=== PATIENT | female | born 1975 | race Caucasian/White ===

== ENCOUNTER 2019-05-20 16:18 | Emergency (ER) | payer OTHER ==
--- NOTE | 2019-05-20 17:22 | EDM.PDOC ---
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 She reports that she had unprotected sex with a unknown partner approximately 2 weeks ago. Since that time she has heard from other people that he is an IV drug user, has multiple STDs and possibly HIV/ AIDS. She states she has had an irregular menstrual period and is concerned that she could be . Does have some mild discomfort to the suprapubic area. Patient denies any fever, chills, headache, change in vision, syncope or near syncope. Denies any chest pain, back pain, shortness of breath or cough. Denies any abdominal pain, nausea, vomiting, diarrhea, constipation or dysuria. She denies any vaginal bleeding, discharge or vaginal odor. Has not been previously treated for any STDs or PID infections. Has not noted any blood in urine or stool. Patient has been eating and drinking appropriately. Review of systems: As per history of present illness and below otherwise all systems reviewed and negative. Past medical history: As per history of present illness and as reviewed below otherwise noncontributory. Surgical history: As per history of present illness and as reviewed below otherwise noncontributory. Social history: See social history for further information Family history: As per history of present illness and as reviewed below otherwise noncontributory. Physical exam: General: Well-developed and well-nourished 43-year-old female. Alert and oriented. Nontoxic appearing and in no acute distress. HEENT: Atraumatic, normocephalic, pupils equal and reactive bilaterally, negative for conjunctival pallor or scleral icterus, mucous membranes moist, TMs normal bilaterally, throat clear, neck supple, nontender, trachea midline. No drooling or trismus noted. No meningeal signs. No hot potato voice noted. Lungs: Clear to auscultation, breath sounds equal bilaterally, chest nontender. Heart: S1S2, regular rate and rhythm without overt murmur Abdomen: Soft, nondistended, nontender. Negative for masses or hepatosplenomegaly. Negative for costovertebral tenderness. Pelvis: Stable nontender. Genitourinary: This was done with consent and a resident hall director at the bedside. External genitalia within normal limits, no lesions or sores noted. Does have mild tenderness with speculum examination. Cervical os is closed with no discharge or bleeding. No cervical motion tenderness. Negative bimanual exam. Rectal: Deferred. Skin: Intact, warm, dry. No lesions or rashes noted. Extremities: Atraumatic, moves all extremities per self without difficulty or deficits, negative for cords or calf pain. Neurovascular unremarkable. Neuro: Awake, alert, oriented. Cranial nerves II through XII unremarkable. Cerebellum unremarkable. Motor and sensory unremarkable throughout. Exam nonfocal. Notes: Pelvic exam was completed and samples were obtained and sent to lab. Patient does have multiple requests for a full STD screening and Pap smear. Did inform the patient of the limited resources and testing available through the emergency room. We will test for gonorrhea and Chlamydia along with a wet prep. She is agreeable to get the remainder of the STD screening through the clinic or [facility]. Rocephin and azithromycin given here. We'll give her prescription for Flagyl. Safe sex practices were discussed. Supportive care measures were reviewed and discussed. Voices understanding and is agreeable to plan of care. Denies any further questions or concerns at this time. Diagnostics: CBC, CMP, UA, urine , gonorrhea/chlamydia, wet prep Therapeutics: Rocephin, azithromycin Prescription: Flagyl Impression: Possible STD exposure Bacterial vaginosis Plan: 1. Practice safe sex. Avoid any sexual contact until you have your STD results back. As we discussed, several of the STD screening's are not done through the emergency room (HIV, AIDS, syphillas, herpes...) Please follow up with your primary care provider or the [facility] for further testing. 2. Take the Flagyl as directed. Do not have sex with taking this medication. 3. Return to the ED as needed and as discussed. Definitive disposition and diagnosis as appropriate pending reevaluation and review of above. - Related Data Allergies Allergy/AdvReac Type Severity Reaction Status Date / Time No Known Allergies Allergy Verified 05/20/19 16:29 Home Meds: Home Meds . [No Known Home Meds] 05/20/19 [History] Past Medical History - Past Surgical History Female Surgical History: Reports: Section Musculoskeletal Surgical History: Reports: Ganglion Cyst Social & Family History - Tobacco Use Smoking Status *Q: Current Some Day Smoker Years of Tobacco use: 10 Packs/Tins Daily: 0 - Caffeine Use Caffeine Use: Reports: Coffee, Energy Drinks, Soda - Recreational Drug Use Recreational Drug Use: No ED ROS GENERAL - Review of Systems Review Of Systems: ROS reveals no pertinent complaints other than HPI. ED EXAM, GENERAL - Physical Exam Exam: See Below (See dictation) Course - Vital Signs Last Recorded V/S: Last Vital Signs Temp 97.2 F 05/20/19 16:25 Pulse 71 05/20/19 16:25 Resp 16 05/20/19 16:25 BP 110/68 05/20/19 16:25 Pulse Ox 98 05/20/19 16:25 - Orders/Labs/Meds Orders: Active Orders 24 hr Category Date Time Status CHLAMYDIA AND GONORRHEA BY TMA Stat Lab 05/20/19 17:00 Received Labs: Laboratory Tests 05/20/19 05/20/19 05/20/19 Range/Units 16:33 16:33 17:00 WBC 6.23 (4.0-11.0) K/uL RBC 4.86 (4.30-5.90) M/uL Hgb 13.8 (12.0-16.0) g/dL Hct 42.0 (36.0-46.0) % MCV 86.4 (80.0-98.0) fL MCH 28.4 (27.0-32.0) pg MCHC 32.9 (31.0-37.0) g/dL RDW Std Deviation 50.8 (28.0-62.0) fl RDW Coeff of Katherine 16 H (11.0-15.0) % Plt Count 322 (150-400) K/uL MPV 9.40 (7.40-12.00) fL Neut % (Auto) 56.7 (48.0-80.0) % Lymph % (Auto) 31.5 (16.0-40.0) % Geneva % (Auto) 8.5 (0.0-15.0) % Eos % (Auto) 2.7 (0.0-7.0) % Baso % (Auto) 0.6 (0.0-1.5) % Neut # (Auto) 3.5 (1.4-5.7) K/uL Lymph # (Auto) 2.0 (0.6-2.4) K/uL Geneva # (Auto) 0.5 (0.0-0.8) K/uL Eos # (Auto) 0.2 (0.0-0.7) K/uL Baso # (Auto) 0.0 (0.0-0.1) K/uL Nucleated RBC % 0.0 /100WBC Nucleated RBCs # 0 K/uL Urine Color YELLOW Urine Appearance CLEAR Urine pH 6.0 (5.0-8.0) Ur Specific Waterman 1.025 (1.001-1.035) Urine Protein NEGATIVE (NEGATIVE) mg/dL Urine Glucose (UA) NEGATIVE (NEGATIVE) mg/dL Urine Ketones NEGATIVE (NEGATIVE) mg/dL Urine Occult Blood NEGATIVE (NEGATIVE) Urine Nitrite NEGATIVE (NEGATIVE) Urine Bilirubin NEGATIVE (NEGATIVE) Urine Urobilinogen 0.2 (<2.0) EU/dL Ur Leukocyte Esterase NEGATIVE (NEGATIVE) Urine RBC NONE SEEN (0-2/HPF) Urine WBC 0-1 (0-5/HPF) Ur Epithelial Cells RARE (NONE-FEW) Urine Bacteria RARE (NEGATIVE) Urine HCG, Qual (NEGATIVE) Suzanne species DNA (NEGATIVE) Gardnerella DNA Probe (NEGATIVE) Trichomonas DNA Probe (NEGATIVE) Blood Type O POSITIVE 05/20/19 05/20/19 Range/Units 17:00 17:00 WBC (4.0-11.0) K/uL RBC (4.30-5.90) M/uL Hgb (12.0-16.0) g/dL Hct (36.0-46.0) % MCV (80.0-98.0) fL MCH (27.0-32.0) pg MCHC (31.0-37.0) g/dL RDW Std Deviation (28.0-62.0) fl RDW Coeff of Katherine (11.0-15.0) % Plt Count (150-400) K/uL MPV (7.40-12.00) fL Neut % (Auto) (48.0-80.0) % Lymph % (Auto) (16.0-40.0) % Geneva % (Auto) (0.0-15.0) % Eos % (Auto) (0.0-7.0) % Baso % (Auto) (0.0-1.5) % Neut # (Auto) (1.4-5.7) K/uL Lymph # (Auto) (0.6-2.4) K/uL Geneva # (Auto) (0.0-0.8) K/uL Eos # (Auto) (0.0-0.7) K/uL Baso # (Auto) (0.0-0.1) K/uL Nucleated RBC % /100WBC Nucleated RBCs # K/uL Urine Color Urine Appearance Urine pH (5.0-8.0) Ur Specific Waterman (1.001-1.035) Urine Protein (NEGATIVE) mg/dL Urine Glucose (UA) (NEGATIVE) mg/dL Urine Ketones (NEGATIVE) mg/dL Urine Occult Blood (NEGATIVE) Urine Nitrite (NEGATIVE) Urine Bilirubin (NEGATIVE) Urine Urobilinogen (<2.0) EU/dL Ur Leukocyte Esterase (NEGATIVE) Urine RBC (0-2/HPF) Urine WBC (0-5/HPF) Ur Epithelial Cells (NONE-FEW) Urine Bacteria (NEGATIVE) Urine HCG, Qual NEGATIVE (NEGATIVE) Suzanne species DNA NEGATIVE (NEGATIVE) Gardnerella DNA Probe POSITIVE H (NEGATIVE) Trichomonas DNA Probe NEGATIVE (NEGATIVE) Blood Type Meds: Medications Discontinued Medications Generic Name Dose Route Start Last Admin Trade Name Freq PRN Reason Stop Dose Admin Azithromycin 1,000 mg 05/20/19 17:58 05/20/19 18:12 Zithromax PO 05/20/19 17:59 1,000 mg NOW STA Administration Ceftriaxone Sodium 250 mg/ 1 mls @ 1 mls/sec 05/20/19 17:57 05/20/19 18:12 Lidocaine HCl IM 05/20/19 17:58 1 mls/sec ONETIME ONE Administration Lidocaine HCl 2 ml 05/20/19 17:57 05/20/19 18:14 Xylocaine-Mpf 1% INJECT 05/20/19 17:58 Not Given ONETIME ONE Ondansetron HCl 4 mg 05/20/19 18:05 05/20/19 18:13 Zofran Odt PO 05/20/19 18:06 4 mg ONETIME ONE Administration Ondansetron HCl Confirm 05/20/19 18:07 05/20/19 18:13 Zofran Odt Administered 05/20/19 18:08 Not Given Dose 4 mg .ROUTE .STK-MED ONE Departure - Departure Time of Disposition: 18:15 Disposition: Home, Self-Care 01 Clinical Impression: Bacterial vaginosis, Possible exposure to STD - Discharge Information Instructions: Bacterial Vaginosis, [id number] Referrals: PCP,None [Primary Care Provider] - Forms: ED Department Discharge Additional Instructions: The following information is given to patients seen in the emergency department who are being discharged to home. This information is to outline your options for follow-up care. We provide all patients seen in our emergency department with a follow-up referral. The need for follow-up, as well as the timing and circumstances, are variable depending upon the specifics of your emergency department visit. If you don't have a primary care physician on staff, we will provide you with a referral. We always advise you to contact your personal physician following an emergency department visit to inform them of the circumstance of the visit and for follow-up with them and/or the need for any referrals to a consulting specialist. The emergency department will also refer you to a specialist when appropriate. This referral assures that you have the opportunity for follow-up care with a specialist. All of these measure are taken in an effort to provide you with optimal care, which includes your follow-up. Under all circumstances we always encourage you to contact your private physician who remains a resource for coordinating your care. When calling for follow-up care, please make the office aware that this follow-up is from your recent emergency room visit. If for any reason you are refused follow-up, please contact the [facility] Emergency Department at and asked to speak to the emergency department charge nurse. [facility] [address] [place] [id number] [facility] [address] [place] [address] [facility] [address] [place] [address] 1. Practice safe sex. Avoid any sexual contact until you have your STD results back. As we discussed, several of the STD screening's are not done through the emergency room (HIV, AIDS, syphillas, herpes...) Please follow up with your primary care provider or the [facility] for further testing. 2. Take the Flagyl as directed. Do not have sex with taking this medication. 3. Return to the ED as needed and as discussed. - My Orders Last 24 Hours: My Active Orders 05/20/19 17:00 CHLAMYDIA AND GONORRHEA BY [facility] Stat - Assessment/Plan Last 24 Hours: My Active Orders 05/20/19 17:00 CHLAMYDIA AND GONORRHEA BY TMA Stat
[2019-05-20] MEDS ORDERED: cefTRIAXone 250 MG in Lidocaine 1% 1 ML IM ONE (17:57)
[2019-05-20] MEDS ORDERED: Lidocaine 1% PF 2 ML SDV INJECT ONE (17:57)
[2019-05-20] MEDS ORDERED: Azithromycin 250 MG Tab PO STA (17:58)
[2019-05-20] MEDS ORDERED: Ondansetron 4 MG Tab.DIS PO ONE (18:05)
[2019-05-20] MEDS ORDERED: Ondansetron 4 MG Tab.DIS ONE (18:07)
== END 2019-05-20 18:41 | disposition home or self-care (01) ==
LOC: MW.ED 16:18
DX: N76.0 Acute vaginitis (principal); B96.89 Other specified bacterial agents as the cause of diseases classified elsewhere; Z20.2 Contact with and (suspected) exposure to infections with a predominantly sexual mode of transmission; F17.210 Nicotine dependence, cigarettes, uncomplicated
CPT/HCPCS: 36415; 81001; 81025; 85025; 86900; 86901; 87480; 87491; 87510; 87591; 87660; 96372; 99283; A9270; J0696; J2001